=== PATIENT | female | born 1980 | race African-American/Black ===

== ENCOUNTER → 2022-05-12 14:26 | Outpatient (BNVA) | payer OTHER, SELFPAY | PROVIDERS: PCP Internal Medicine Hematology & Oncology; Visit Provider Physician Assistant Surgical | DX: E66.9 Obesity, unspecified (principal); Z90.3 Acquired absence of stomach [part of] | CPT/HCPCS: 99202 ==

== ENCOUNTER 2022-05-21 09:50 | Outpatient (REF) | payer OTHER, SELFPAY ==
[2022-05-21 11:08] LABS: C Reactive Protein 0.22 mg/dL (< or = 0.50); Iron 95 mcg/dL (30-160); Percent Iron Saturation 31 % (15-50); Total Iron Binding Capacity 308 mcg/dL (228-428); Unsaturated Iron Binding 213 ug/dL
[2022-05-21 11:18] LABS: Ferritin 111 ng/mL (10-250)
[2022-05-21 11:52] LABS: Insulin 4 uU/mL (2-29); Vitamin D 25-OH Total 37.2 ng/mL (>30)
[2022-05-23 08:05] LABS: Folate > 20.0 ng/mL (> or = 4.0); Vitamin B12 775 pg/mL (200-900)
[2022-05-23 19:07] LABS: Calcium (PTHI) 9.5 mg/dL (8.6-10.2); PTHI 64 pg/mL (16-77)
[2022-05-25 16:26] LABS: Zinc 81 mcg/dL (60-130)
[2022-05-27 06:06] LABS: Vitamin B1 10 nmol/L (8-30)
== END 2022-05-21 09:51 | disposition home or self-care (01) ==
LOC: HO.LAB 09:50
PROVIDERS: Visit Provider Physician Assistant Surgical
DX: Z90.3 Acquired absence of stomach [part of] (principal)
CPT/HCPCS: 36415; 82306; 82607; 82728; 82746; 83525; 83540; 83970; 84425; 84630; 86140

== ENCOUNTER → 2022-06-17 15:06 | Outpatient (BNVA) | payer OTHER, SELFPAY | PROVIDERS: PCP Internal Medicine Hematology & Oncology; Visit Provider Physician Assistant Surgical | DX: E66.9 Obesity, unspecified (principal); Z68.30 Body mass index [BMI] 30.0-30.9, adult; Z90.3 Acquired absence of stomach [part of] | CPT/HCPCS: 99212 ==

== ENCOUNTER → 2022-07-22 14:36 | Outpatient (BNVA) | payer OTHER, SELFPAY | PROVIDERS: PCP Internal Medicine Hematology & Oncology; Visit Provider Physician Assistant Surgical | DX: E66.9 Obesity, unspecified (principal); Z68.31 Body mass index [BMI] 31.0-31.9, adult; Z90.3 Acquired absence of stomach [part of] | CPT/HCPCS: 99212 ==

== ENCOUNTER → 2022-09-02 14:54 | Outpatient (BNVA) | payer OTHER, SELFPAY | PROVIDERS: PCP Internal Medicine Hematology & Oncology; Visit Provider Physician Assistant Surgical | DX: E66.9 Obesity, unspecified (principal); Z90.3 Acquired absence of stomach [part of]; Z68.32 Body mass index [BMI] 32.0-32.9, adult | CPT/HCPCS: 99212 ==

== ENCOUNTER → 2022-09-07 10:53 | Outpatient (REF) | payer OTHER, SELFPAY ==
--- NOTE | 2022-09-07 11:04 | ECG_ITS ---
Test Reason : palpitations Blood Pressure : / mmHG Vent. Rate : 058 BPM Atrial Rate : 058 BPM P-R Int : 162 ms QRS Dur : 102 ms QT Int : 420 ms P-R-T Axes : 051 -14 -11 degrees QTc Int : 412 ms Sinus bradycardia with sinus arrhythmia Nonspecific T wave abnormality Abnormal ECG No previous ECGs available Referred By: Krysten Stephenson Electronically Signed By:CONY HARTLEY MD
[2022-09-13 10:39] LABS: Vitamin A 43 mcg/dL (38-98)
== END ==
LOC: HO.CARD 10:53
PROVIDERS: Visit Provider Physician Assistant Surgical
DX: R00.2 Palpitations (principal); Z90.3 Acquired absence of stomach [part of]
CPT/HCPCS: 36415; 84590; 93005

== ENCOUNTER → 2022-09-27 14:44 | Outpatient (BNVA) | payer OTHER, SELFPAY | PROVIDERS: Visit Provider Internal Medicine | DX: R94.31 Abnormal electrocardiogram [ECG] [EKG] (principal); R07.2 Precordial pain; R06.02 Shortness of breath | CPT/HCPCS: 99202 ==

== ENCOUNTER → 2022-09-29 12:55 | Outpatient (REF) | payer OTHER, SELFPAY ==
--- NOTE | 2022-09-29 13:09 | CA_ITS ---
Transthoracic Echocardiogram Patient (Last, First, Middle): Ludy Duron, Gender: Female Date of : 1980 Age: 42 Procedure Date: 09/29/2022 Procedure Type: Transthoracic Echocardiogram Location: OP Height: 170.18 cm Weight: 96.16 kg BSA: 2.07 m2 Heart Rate: bpm BP: 138 / 88 mmHg Microsoft Systems Engineer: ASHWINI Referring MD: Galdino Rea MD Bedspread Cutter Hand: Jules Stewart MD Symptoms: R07.2 - Precordial pain Study Quality: Adequate ECG Rhythm: Sinus Conclusions: - Essentially normal study Findings Left Ventricle Normal left ventricular size, thickness, and systolic function. The visually estimated ejection fraction is between 60-65%. Spectral Doppler is indicative of a normal filling pattern. Right Ventricle Normal right ventricular cavity size and systolic function. Atria Both atria are normal in size. There is no evidence of interatrial shunt. Aortic Valve Normal aortic valve structure and function. There is no aortic valve stenosis. There is no aortic valve regurgitation. Mitral Valve Normal mitral valve structure and function. There is trace mitral valve regurgitation. There is no mitral valve stenosis. Pulmonic Valve The pulmonic valve is likely normal. There is trace to mild pulmonic valve regurgitation. Tricuspid Valve Normal tricuspid valve structure. There is trace tricuspid valve regurgitation. The right ventricular systolic pressure is normal. The right ventricular systolic pressure is 28 mmHg. Normal right atrial pressure. There is no evidence of pulmonary hypertension. Great Vessels All visible segments of the aorta are normal in size. The visualized portions of the pulmonary artery and branches are normal. Venous The inferior vena cava is normal in size and collapses greater than 50% with inspiration. Pericardium/Pleural There is no evidence of pericardial effusion. Prior Study Comparison No prior study available for comparison. Measurements 2D Linear Measurements IVSd: 1.09 0.6-0.9/0.6-1.0 cm LVIDd: 4.95 3.9-5.3/4.2-5.9 cm LVIDd Index: 2.39 2.4-3.2/2.2-3.1 cm/m2 LVIDs: 3.16 2.0-3.6 cm LVPWd: 1.09 0.7-1.1 cm LA Diam: 3.70 2.7-3.8/3.0-4.0 cm LAIDs Index: 1.79 1.5-2.3 cm/m2 LV Mass: 250.83 67-162/88-224 g LV Mass Index: 121.17 43-95/49-115 g/m2 LVOT Diam: 1.90 3.0+(-)1.3 cm 2D Systolic Function EF 4C: 65.00 >55% EF 2C: 63.90 >55% EF BiP: 64.80 >55% Mitral Valve MV Pk E: 0.94 MV PK A: 0.82 MV Decel Time: 245.00 E/A: 1.10 E'Lateral: 11.90 E'Medial: 9.14 E/E' Med: 10.30 E/E' Lat: 7.90 PHT: 72.00 MVA PHT: 3.06 Decel [place]: 3.83 Aortic Valve AoV Pk Caleb: 1.53 AoV Mn Caleb: 1.08 AoV VTI: 0.38 AoV Pk Grad: 9.00 Aov Mn Grad: 5.00 WAQAS Cont.VTI: 1.86 LVOT LVOT Pk Caleb: 1.03 LVOT Mn Caleb: 0.68 LVOT VTI: 0.25 LVOT Pk Grad: 4.00 LVOT Mn Grad: 2.00 LVOT Diam: 1.90 LVOT Area: 2.84 Diastolic Function MV Pk E: 0.94 MV Pk A: 0.82 E/A: 1.10 E'Medial: 9.14 E/E' Med: 10.30 E' Laterial: 11.90 E/E' Lat: 7.90 Right Ventricle TAPSE (mm): 22.80 TVS' Caleb: 11.10 Tricuspid Valve TR Pk Caleb: 2.23 TR Pk Grad: 20.00 RA Press: 8.00 RVSP: 28.00 Great Vessels Aorta Sinus of Valsalva: 2.90 2.0-3.[address] [place]: 2.62 1.7-3.4 cm Ao Asc: 3.20 2.1-3.4 cm Updated in Other Vendor System with Status of Final Jules Stewart MD electronically signed on 09/30/2022 4:02:59 PM with status of Final
== END ==
LOC: HO.CARD 12:55
PROVIDERS: Visit Provider Internal Medicine
DX: R07.2 Precordial pain (principal)
CPT/HCPCS: 93306

== ENCOUNTER → 2022-11-11 11:18 | Outpatient (BNVA) | payer OTHER, SELFPAY | PROVIDERS: Visit Provider Physician Assistant Surgical | DX: Z13.89 Encounter for screening for other disorder (principal) ==

== ENCOUNTER 2023-05-10 15:21 | Outpatient (AMB) | payer OTHER, SELFPAY ==
--- NOTE | 2023-05-10 15:22 | A.OFFVIS_ITS ---
Intake VS Expanded 05/10/23 15:27 Height 5 ft 7 in Weight 219 lb 6.4 oz BMI 34.4 BP 143/87 H Blood Pressure Location Rt brachial Blood Pressure Position Sitting Pulse 76 Pulse Source Pulse Oximeter Temp 97.7 F Temperature Source Temporal Artery Scan Pulse Oximetry 95 Oxygen Delivery Method Room Air Body Fat 83.2 Body Fat Percentage 37.9 Free Fat Mass 136.2 Muscle Mass 129.4 Visceral Mass 9.0 Water Mass 97.2 BMR 1,871 Intake Visit Reasons: (OV) PO LSG 07/05/21 Allergies No Known Allergies Allergy (Verified 05/10/23 15:26) Medication List - Last Reconciled 05/10/23 by JON Foster clotrimazole 1% 1 appl topical BID levothyroxine 75 mcg PO DAILY HPI HPI Comments History of Present Illness Details This?is a?42?yo female who is s/p LSG at OSH 07/05/2021. Presents for 1 year 10 month post op visit. Weight at last visit on 11/11/2022 was 206 pounds with a BMI of 32.2, weight today is 219.4 pounds, representing a 13.4 pound weight gain with a BMI today of 34.4.? No complaints of nausea, emesis, abdominal pain or reflux, or constipation. Pt reports she is dealing with a lot of depression. Sister is staying with her to help. Currently not seeing a therapist, not on any meds. Thinks her recent weight gain has been due to being dormant. Present meal plan includes: 2 shakes a day, one protein snack, and one small meal of protein and veg given as plan at last visit eats chicken or fish for lunch and dinner, has vegetables; one shake per day, one yogurt takes a liborio MVI Exercise routine includes: walking, has gym membership and plans to restart going to gym Did the patient ever have any of these conditions and are they resolved or still being treated? Did the patient ever have any of these conditions and are they resolved or still being treated? GERD: resolved OSWALDO:? just restarted using CPAP DM:? resolved HTN:? resolved Hyperlipidemia:? resolved Post op complications:? none [facility] Medical History (Updated 09/27/22 @ 15:20 by Galdino Rea MD) Delivery with history of Surgical History H/O gastric sleeve Hx of breast reduction, elective Hx of hysterectomy Hx of tubal ligation Family History Mother No problems noted. Father COVID-19 Diabetes Son No problems noted. 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 Will schedule BH appt. Pt recently had some labs done, reviewed on her phone today; will order remaining labs. TSH was high and dose was recently adjusted to try to correct this. RTC 3 months. Encouraged pt to email me between appts with any questions or issues. Patient is obese and is not considered stable at this time. I spent a total of 30 minutes reviewing/updating records, examining the patient and counseling the patient on weight management as detailed above. Orders: Orders Vitamin B12 and Folate Today Z90.3 - Acquired absence of stomach [part of] Comprehensive Met. Panel Today Z90.3 - Acquired absence of stomach [part of] C Reactive Protein Today Z90.3 - Acquired absence of stomach [part of] Ferritin Today Z90.3 - Acquired absence of stomach [part of] IRON PROFILE Today Z90.3 - Acquired absence of stomach [part of] PTHI Today Z90.3 - Acquired absence of stomach [part of] Vitamin A Today Z90.3 - Acquired absence of stomach [part of] Vitamin B1 Today Z90.3 - Acquired absence of stomach [part of] Vitamin D 25-OH Total Today Z90.3 - Acquired absence of stomach [part of] Zinc Today Z90.3 - Acquired absence of stomach [part of] Complete Blood Count Auto Diff Today Z90.3 - Acquired absence of stomach [part of] Medications: Refilled clotrimazole 1% 1 appl topical BID 45 grams 3RF Coding Level of Care Code Est Pt Level 4 (67004) Diagnoses Status post sleeve gastrectomy Z90.3 Obesity (BMI 30.0-34.9) E66.9
[2023-05-10 15:27] VITALS: BP 143/87; PULSE 76; TEMP 36.5; O2SAT 95; BMI 34.4
== END 2023-05-10 16:00 | disposition home or self-care (01) ==
PROVIDERS: Visit Provider Physician Assistant Surgical
DX: E66.9 Obesity, unspecified (principal); Z68.34 Body mass index [BMI] 34.0-34.9, adult; Z90.3 Acquired absence of stomach [part of]; Z98.84 Bariatric surgery status
CPT/HCPCS: 99214

== ENCOUNTER → 2023-05-10 15:21 | Outpatient (BNVA) | payer OTHER, SELFPAY | PROVIDERS: Visit Provider Physician Assistant Surgical | DX: E66.9 Obesity, unspecified (principal); Z90.3 Acquired absence of stomach [part of]; Z68.34 Body mass index [BMI] 34.0-34.9, adult | CPT/HCPCS: 99212 ==

== ENCOUNTER 2023-05-26 12:26 | Outpatient (REF) | payer OTHER, SELFPAY ==
[2023-05-26 12:42] LABS: MANUAL DIFF FLAG NO
[2023-05-26 13:53] LABS: Basophils Percent Auto 0.3 % (0-2); Eosinophils Absolute Auto 0.1 X10*3/uL (0.0-0.4); Eosinophils Percent Auto 1.5 % (0-4); Hematocrit 37.1 % (37.0-47.0); Imm Gran Abs Auto 0.04 X10*3/uL (0.00-0.03); Imm Gran Pct Auto 0.5 % (0.0-0.4); Lymphocytes Absolute Auto 2.8 X10*3/uL (1.2-4.9); Lymphocytes Percent Auto 36.3 % (20-40); Mean Corpuscular HGB Conc 32.3 g/dl (31.0-35.0); Mean Corpuscular Hemoglobin 26.5 pg (27.0-33.0); Mean Corpuscular Volume 82.1 fL (80.0-98.0); Mean Platelet Volume 12.1 fL (9.4-12.3); Monocytes Absolute Auto 0.6 X10*3/uL (0.1-1.2); Neutrophils Absolute Auto 4.2 x10*3/uL (2.0-8.3); Neutrophils Percent Auto 53.4 % (45-73); Platelet Count 230 X10*3/uL (160-400); Red Blood Count 4.52 X10*6/uL (4.20-5.50); Red Cell Distribution Width 13.8 % (11.0-16.0); White Blood Count 7.8 X10*3/uL (4.8-10.8)
[2023-05-26 14:35] LABS: Alanine Aminotransferase 15 U/L (0-31); Albumin Level 3.9 g/dL (3.5-5.0); Alkaline Phosphatase 73 U/L (39-117); Anion Gap 11 (12-20); Aspartate Amino Transferase 18 U/L (5-31); Bilirubin Total 0.3 mg/dL (0.0-1.0); Blood Urea Nitrogen 11 mg/dL (9-16); C Reactive Protein 3.48 mg/dL (< or = 0.50); Calcium 9.6 mg/dL (8.4-10.2); Carbon Dioxide 28 mmol/L (22-29); Chloride 107 mmol/L (96-108); Estimated Glomerular Filt Rate > 60; Glucose Random 103 mg/dL (60-115); Iron 57 mcg/dL (30-160); Percent Iron Saturation 22 % (15-50); Potassium 4.3 mmol/L (3.3-5.1); Sodium 142 mmol/L (135-145); Total Iron Binding Capacity 261 mcg/dL (228-428); Total Protein 7.5 g/dL (6.5-8.0); Unsaturated Iron Binding 204 ug/dL
[2023-05-26 14:45] LABS: Ferritin 97 ng/mL (10-250); Vitamin D 25-OH Total 30.1 ng/mL (>30)
[2023-05-26 15:06] LABS: Folate 14.2 ng/mL (> or = 4.0); Vitamin B12 940 pg/mL (200-900)
[2023-05-29 11:29] LABS: Calcium (PTHI) 9.3 mg/dL (8.6-10.2); PTHI 40 pg/mL (16-77)
[2023-05-30 12:38] LABS: Zinc 64 mcg/dL (60-130)
[2023-06-01 01:35] LABS: Vitamin A 39 mcg/dL (38-98)
[2023-06-01 16:33] LABS: Vitamin B1 8 nmol/L (8-30)
== END 2023-05-26 12:27 | disposition home or self-care (01) ==
LOC: HO.LAB 12:26
PROVIDERS: Visit Provider Physician Assistant Surgical
DX: Z90.3 Acquired absence of stomach [part of] (principal)
CPT/HCPCS: 36415; 80053; 82306; 82607; 82728; 82746; 83540; 83970; 84425; 84590; 84630; 85025; 86140

== ENCOUNTER 2023-06-08 15:51 | Outpatient (AMB) | payer OTHER, SELFPAY ==
--- NOTE | 2023-06-08 15:16 | A.OFFWM_ITS ---
Intake Intake Visit Reasons: VIDEO PO LSG 07/05/21 Allergies No Known Allergies Allergy (Verified 05/10/23 15:26) PFSH Medical History (Updated 06/14/23 @ 14:31 by Cindy Wilburn) Delivery with history of Surgical History H/O gastric sleeve Hx of breast reduction, elective Hx of hysterectomy Hx of tubal ligation Family History Mother No problems noted. Father COVID-19 Diabetes Son No problems noted. Daughter Asthma Social History Alcohol intake: current Alcohol intake frequency: does not drink Patient Tobacco Use Status: Never used Tobacco Behavioral Health Assessment Weight Management Therapy Therapy Notes Details Pt stated that from [id number] she was seeing a therapist for depression but then moved down to [place] Pt stated that she had a hysterectomy in 2019 and was sick for several years prior to that. Presenting Concerns Referral Source provider Reason for referral depression Precipitating Event medical issues Living Situation Current Living Situation Rent At risk of losing current housing? No Satisfied with current living situation? Yes Comments Patient lives with her 11 year old. Food/Weight/Diet Expectations of change improvement in depression History/Relationship with weight Pt has had some recent weight gain. History/Relationship with dieting gastric sleeve in 2020 at another facility. Binge Eating Do you frequently eat large amounts of food in short periods of time, not feeling physically hungry? No Do you feel out of control when you eat a large amount of food in a short period of time? No Do you eat large amounts of food rapidly and typically alone? No Night Eating Do you wake up at least once during the night to eat? No If you wake up in the night, do you find that it is necessary to eat something in order to fall back asleep? No Do you have little or no appetite in the morning and feel very hungry in the evening, often overeating between dinner and when you go to bed? No Social History Family history and relationship Pt stated that everyone in her family is addicts, she has had to help everyone. Parental/Familial clinical documentation clerk obligations 11 year old daughter Developmental history and status no issues Social support minimal support Legal Involvement and History Current or historical involvement with the legal system? none Education Highest grade completed graduate school Preferred learning style Auditory, Verbal, Written, Learn by doing and Visual Currently enrolled in educational program? No Interested in further educational program? 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 No Financial Situation Describe current financial situation Occasional struggle Financial assistance? None Service Service? No Mental Health and Addiction Treatment Current/Past substance abuse? No Current/Past addictive behavior concerns? No Pain Screening Current pain? No Pain in the last few months? No Medications Is the patient compliant with medications? Yes Does the patient have Carney Guardian in place? Not applicable Does the patient use complimentary health approaches? No Trauma/Abuse History History of trauma? Yes Questionnaires PHQ-9 Over the last 2 weeks, how often have you been bothered by any of the following problems? 1. Little interest or pleasure in doing things: nearly every day 2. Feeling down, depressed, or hopeless: not at all 3. Trouble falling or staying asleep, or sleeping too much: several days 4. Feeling tired or having little energy: several days 5. Poor appetite or overeating: not at all 6. Feeling bad about yourself - or that you are a failure or have let yourself or your family down: not at all 7. Trouble concentrating on things, such as reading the newspaper or watching television: several days 8. Moving or speaking so slowly that other people could have noticed. Or the opposite - being so fidgety or restless that you have been moving around a lot more than usual: not at all 9. Thoughts that you would be better off or of hurting yourself in some way: not at all Total score: 6 Source: Developed by Drs. Ramana Desir, Sheela Duron, Delvis Suarez and colleagues, with an educational ermelinda from [employer]. Binge Eating Scale Group 1 A. I don't feel self-conscious about my wt. or body size when I'm with others. B. I feel concerned about how I look to others, but it normally does not make me fell disappointed with myself C. I do get self-conscious about my appearance and wt. which makes me feel disappointed in myself. D. I feel very self-conscious about my wt. and frequently I feel intense shame and disgust for myself. I try to avoid social contacts because of my self- consciousness. Response Group 1: B Group 2 A. I don't have any difficulty eating slowly in the proper manner. B. Although I seem to gobble down foods, I don't end up feeling stuffed because of eating to much. C. At times, I tend to eat quickly and then, I feel uncomfortably full afterwards. D. I have the habit of bolting down my food, without really chewing it. When this happens I usually feel uncomfortably stuffed because I've eaten to much. Response Group 2: A Group 3 A. I feel capable to control my eating urges when I want to. B. I feel like I have failed to control my eating more than the average person. C. I feel utterly helpless when it comes to feeling in control of my eating urges. D. Because I feel so helpless about controlling my eating I have become very desperate about trying to get control. Response Group 3: A Group 4 A. I don't have the habit of eating when I'm bored. B. I sometimes eat when I'm bored, but often I'm able to get busy and get my mind off food. C. I have a regular habit of eating when I'm bored, but occasionally, I can use some other activity to get my mind off eating. D. I have a strong habit of eating when I'm bored. Nothing seems to help me breath the habit. Response Group 4: A Group 5 A. I'm usually physically hungry when I eat something. B. Occasionally, I eat something on impulse even though I really am not hungry. C. I have the regular habit of eating foods, that I might not really enjoy, to satisfy a hungry feeling even though physically, I don't need the food. D. Although I'm not physically hungry, I get a hungry feeling in my mouth that only seems to be satisfied when I eat a food, like sandwich, that fills my mouth. Sometimes, when I eat the food to satisfy my mouth hunger, I then spit the food out so I won't gain weight. Response Group 5: A Group 6 A. I don't feel any guilt or self-hate after I overeat. B. After I overeat, occasionally I feel guilt or self-hate. C. Almost all the time I experience strong guilt or self-hate after I overeat. Response Group 6: A Group 7 A. I don't lose total control of my eating when dieting even after periods when I overeat. B. Sometimes when I eat a forbidden food on a diet, I feel like I blew it and eat even more. C. Frequently, I have the habit of saying to myself, I've blown it now, why not go all the way, when I overeat on a diet. When that happens I eat more. D. I have a regular habit of starting a strict diets for myself but I break the diets by going on an eating binge. My life seems to be either a feast or famine. Response Group 7: A Group 8 A. I rarely eat so much food that I feel uncomfortably stuffed afterwards. B. Usually about once a month, I each such a quantity of food, I end up feeling very stuffed. C. I have regular periods during the month when I eat large amounts of food, either at mealtime or at snacks. D. I eat so much food that I regularly feel quite uncomfortable after eating and sometimes a bit nauseous. Response Group 8: A Group 9 A. My level of calorie intake does not go up very high or go down very low on a regular basis. B. Sometimes after I overeat, I will try to reduce my caloric intake to almost nothing to compensate for the excess calories I've eaten. C. I have a regular habit of overeating during the night. It seems that my routine is not to be hungry in the morning but overeat in the evening. D. In my adult years, I have had week-long periods where I practically starve myself. This follows periods when I overeat. It seems I live a life of either feast or famine. Response Group 9: A Group 10 A. I usually am able to stop eating when I want to. I know when enough is enoug h. B. Every so often, I experience a compulsion to eat which I can't seem to control. C. Frequently, I experience strong urges to eat which I seem unable to control, but at other times I can control my eating urges. D. I feel incapable of controlling urges to eat. I have a fear of not being able to stop eating voluntarily. Response Group 10: A Group 11 A. I don't have any problem stopping eating when I feel full. B. I usually can stop eating when I feel full but occasionally overeat leaving me feeling uncomfortably stuffed. C. I have a problem stopping eating once I start and usually I feel unc omfortably stuffed after I eat a meal. D. Because I have a problem not being able to stop eating when I want, I sometimes have to induce vomiting to relieve my stuffed feeling. Response Group 11: A Group 12 A. I seem to eat just as much when I'm with others, Family social gatherings as when I'm by myself. B. Sometimes, when I'm with other persons, I don't eat as much as I want to eat because I'm self-conscious about my eating. C. Frequently, I eat only a small amount of food when others are present, because I'm very embarrassed about my eating. D. I feel so ashamed about overeating that I pick times to overeat when I know no one will see me. I feel like a closet eater. Response Group 12: A Group 13 A. I eat three meals a day with only an occasional between meal snack. B. I eat 3 meals a day, but I also normally snack between meals. C. When I am snacking heavily, I get in the habit of skipping regular meals. D. There are regular periods when I seem to be continually eating, with no planned meals. Response Group 13: B Group 14 A. I don't think much about trying to control unwanted eating urges. B. At least some of the time, I feel my thoughts are pre-occupied with trying to control my eating urges. C. I feel that frequently I spend much time thinking about how much I ate or about trying not to eat anymore. D. It seems to me that most of my waking hours are pre-occupied by thoughts about eating or not eating. I feel like I'm constantly struggling not to eat. Response Group 14: A Group 15 A. I don't think about food a great deal. B. I have strong craving for food but they last only for brief periods of time. C. I have days when I can't seem to think about anything else but food. D. Most of my days seem to be pre-occupied with thoughts about food. I feel like I live to eat. Response Group 15: A Group 16 A. I usually know whether or not I'm physically hungry. I take the right portion of food to satisfy me. B. Occasionally, I feel uncertain about knowing whether or not I'm physically hungry. A these times it's hard to know how much food I should take to satisfy me. C. Even though I might know how many calories I should eat, I don't have any idea what is a normal amount of food for me. Response Group 16: A Binge Eating Score: 2 Score less than 17 Minimal Risk Score between 18-26 Moderate Risk Score between 27-46 High Risk Assessment & Plan Assessment & Plan (1) Major depressive disorder, recurrent, moderate: Code(s): F33.1 - Major depressive disorder, recurrent, moderate (2) Status post sleeve gastrectomy: Code(s): Z90.3 - Acquired absence of stomach [part of] Plan Patient is in need of therapeutic support. We discussed EDMR to help heal from past trauma. Telehealth Telehealth Location of provider rendering services: other Location of patient: address on file Patient Identification confirmed using: Name, : Yes Telehealth method: video Patient verbally consented to treatment: Yes Patient verbally consented to billing insurance company: Yes Patient informed of any privacy concerns related to visit: Yes Minutes spent on Phone/Video with Pt.: 45 Coding Level of Care Code Psy Diag Karleneal ([id number]) Diagnoses Major depressive disorder, recurrent, moderate F33.1 Status post sleeve gastrectomy Z90.3 Time Spent (min) 45
== END 2023-06-14 14:22 | disposition home or self-care (01) ==
PROVIDERS: Visit Provider Counselor Mental Health
DX: F33.1 Major depressive disorder, recurrent, moderate (principal); Z90.3 Acquired absence of stomach [part of]
CPT/HCPCS: 90791

== ENCOUNTER → 2023-06-08 15:51 | Outpatient (BNVA) | payer OTHER, SELFPAY | PROVIDERS: Visit Provider Counselor Mental Health ==

== ENCOUNTER → 2023-06-20 15:25 | Outpatient (BNVA) | payer OTHER, SELFPAY | PROVIDERS: Visit Provider Counselor Mental Health | DX: F33.1 Major depressive disorder, recurrent, moderate (principal); Z90.3 Acquired absence of stomach [part of] ==